=== PATIENT | female | born 1960 | race Caucasian/White ===

== ENCOUNTER 2019-01-28 22:11 | Emergency (ER) | payer BC ==
[~2019-01-28] VITALS: Ht 154.9 cm; Wt 45.4 kg
[~2019-01-28 22:11] MED LIST: CHOL4PAC16 PO; DIAZ5TAB PO; FIDA200T PO; FLUO20CA42 PO; OXYC1TAB16 PO
[2019-01-29 00:13] LABS: ALANINE AMINOTRANSFERASE 11 U/L (0-55); ALBUMIN 4.5 GM/DL (3.2-4.5); ALKALINE PHOSPHATASE 90 U/L (40-136); BILIRUBIN,TOTAL 0.2 MG/DL (0.1-1.0); BUN/CREATININE RATIO 14; CARBON DIOXIDE 27 MMOL/L (21-32); CHLORIDE 103 MMOL/L (98-107); CREATININE SERUM 0.85 MG/DL (0.60-1.30); GFR ESTIMATED > 60; GLUCOSE 93 MG/DL (70-105); LIPASE 61 U/L (8-78); MAGNESIUM 1.8 MG/DL (1.6-2.4); POTASSIUM 3.9 MMOL/L (3.6-5.0); SODIUM 143 MMOL/L (135-145); TOTAL PROTEIN 7.9 GM/DL (6.4-8.2)
[2019-01-29 00:14] LABS: COLOR,URINE YELLOW
[2019-01-29 00:15] LABS: BILIRUBIN,URINE NEGATIVE (NEGATIVE); CLARITY,URINE CLEAR; GLUCOSE, URINE (UA) NEGATIVE (NEGATIVE); KETONES,URINE NEGATIVE (NEGATIVE); LEUKOCYTE ESTERASE ,URINE NEGATIVE (NEGATIVE); NITRITE,URINE NEGATIVE (NEGATIVE); PROTEIN,URINE NEGATIVE (NEGATIVE); UROBILINOGEN,URINE NORMAL (NORMAL)
[2019-01-29 00:16] LABS: AMORPHOUS SEDIMENT,UR FEW AMOR PHOSPHATE /LPF; BACTERIA,URINE FEW /HPF
[2019-01-29 00:19] LABS: BASOPHILS % (AUTO) 0 % (0-10); EOSINOPHILS % (AUTO) 1 % (0-10); HEMATOCRIT 44 % (35-52); HEMOGLOBIN 14.6 G/DL (11.5-16.0); LYMPHOCYTES % (AUTO) 25 % (12-44); MEAN CORPUSCULAR HEMOGLOBIN 33 PG (25-34); MEAN CORPUSCULAR HGB CONC 33 G/DL (32-36); MEAN CORPUSCULAR VOLUME 99 FL (80-99); MEAN PLATELET VOLUME 9.4 FL (7.4-10.4); MONOCYTES % (AUTO) 7 % (0-12); NEUTROPHILS % (AUTO) 67 % (42-75); PLATELET COUNT 343 10^3/uL (130-400); RED CELL DISTRIBUTION WIDTH 13.6 % (10.0-14.5); WHITE BLOOD COUNT 12.8 10^3/uL (4.3-11.0)
[2019-01-29 00:20] LABS: BASOPHILS # (AUTO) 0.1 10^3/uL (0.0-0.1); EOSINOPHILS # (AUTO) 0.1 10^3/uL (0.0-0.3); LYMPHOCYTES # (AUTO) 3.2 X 10^3 (1.0-4.0); MONOCYTES # (AUTO) 0.9 X 10^3 (0.0-1.0); NEUTROPHILS # (AUTO) 8.6 X 10^3 (1.8-7.8)
[2019-01-29] MEDS ORDERED: HYOSCYAMINE 0.125 MG (LEVSIN) TAB SL ONE (01:45)
--- NOTE | 2019-01-29 01:47 | ED Abdominal Pain ---
General Chief Complaint: Abdominal/GI Problems Stated Complaint: SEVERE STOMACH PAIN Nursing Triage Note: ABD PAIN FOR 2 WEEKS HAS BEEN TO DOCTOR MULTIPLE TIMES AND STATES SHE CANT DEAL ANYMORE BECAUSE OF THE PAIN. Sepsis Screen: No Definite Risk Allergies and Home Medications Allergies Coded Allergies: fenoprofen (Verified Allergy, Severe, Anaphylaxis, 01/29/19) Had anaphylaxis to fenoprofen. However, she can take aspirin and ibuprofen. Uncoded Allergies: CHEESE & NUTS (Allergy, Unknown, 11/11/07) Home Medications Cholestyramine (with Sugar) 4 Gm Powd.pack, 4 GM PO DAILY, (Reported) Fidaxomicin 200 Mg Tablet, 200 MG PO BID Prescribed by: ABBY DUMONT on 05/24/152103 Past Qatirvc-Nrqeni-Rgmdeh Hx Patient Social History Alcohol Use: Occasionally Uses Recreational Drug Use: No Smoking Status: Current Everyday Smoker Type Used: Cigarettes 2nd Hand Smoke Exposure: No Recent Foreign Travel: No Contact w/Someone Who Travel: No Recent Infectious Disease Expo: No Recent Hopitalizations: No Physical Abuse: No Sexual Abuse: No Mistreated: No Fear: No Past Medical History Surgeries: Yes (bilat lumpectomy-breast) Adenoidectomy, Hysterectomy, Tonsillectomy Respiratory: No Cardiac: Yes (medication induced [place]) Heart Attack Neurological: Yes Headaches /Migraines : No CAD ENGINEER History: Hysterectomy Genitourinary: No Gastrointestinal: Yes (recent dx w/ c diff) C-Diff Musculoskeletal: Yes Chronic Back Pain Endocrine: No HEENT: No Cancer: No Psychosocial: Yes (panic) Integumentary: No Blood Disorders: No Adverse Reaction/Blood Tranf: No Physical Exam Vital Signs Vital Signs - First Documented 01/28/19 22:15 Temp 99.4 Pulse 101 Resp 18 B/P (MAP) 157/81 (106) Pulse Ox 97 Capillary Refill : Less Than 3 Seconds Height/Weight/BMI Height: 5'1.00" Weight: 100lbs. oz. [id number]; BMI Method:Stated Progress/Results/Core Measures Results/Orders Lab Results Laboratory Tests Test 01/28/19 22:19 01/28/19 22:50 Range/Units White Blood Count 12.8 H 4.3-11.0 10^3/uL Red Blood Count 4.42 4.35-5.85 10^6/uL Hemoglobin 14.6 11.5-16.0 G/DL Hematocrit 44 35-52 % Mean Corpuscular Volume 99 80-99 FL Mean Corpuscular Hemoglobin 33 25-34 PG Mean Corpuscular Hemoglobin Concent 33 32-36 G/DL Red Cell Distribution Width 13.6 10.0-14.5 % Platelet Count 343 130-400 10^3/uL Mean Platelet Volume 9.4 7.4-10.4 FL Neutrophils (%) (Auto) 67 42-75 % Lymphocytes (%) (Auto) 25 12-44 % Monocytes (%) (Auto) 7 0-12 % Eosinophils (%) (Auto) 1 0-10 % Basophils (%) (Auto) 0 0-10 % Neutrophils # (Auto) 8.6 H 1.8-7.8 X 10^3 Lymphocytes # (Auto) 3.2 1.0-4.0 X 10^3 Monocytes # (Auto) 0.9 0.0-1.0 X 10^3 Eosinophils # (Auto) 0.1 0.0-0.3 10^3/uL Basophils # (Auto) 0.1 0.0-0.1 10^3/uL Sodium Level 143 135-145 MMOL/L Potassium Level 3.9 3.6-5.0 MMOL/L Chloride Level 103 98-107 MMOL/L Carbon Dioxide Level 27 21-32 MMOL/L Anion Gap 13 5-14 MMOL/L Blood Urea Nitrogen 12 7-18 MG/DL Creatinine 0.85 0.60-1.30 MG/DL Estimat Glomerular Filtration Rate > 60 BUN/Creatinine Ratio 14 Glucose Level 93 70-105 MG/DL Calcium Level 10.0 8.5-10.1 MG/DL Corrected Calcium 9.6 8.5-10.1 MG/DL Magnesium Level 1.8 1.6-2.4 MG/DL Total Bilirubin 0.2 0.1-1.0 MG/DL Aspartate Amino Transf (AST/SGOT) 19 5-34 U/L Alanine Aminotransferase (ALT/SGPT) 11 0-55 U/L Alkaline Phosphatase 90 40-136 U/L Total Protein 7.9 6.4-8.2 GM/DL Albumin 4.5 3.2-4.5 GM/DL Lipase 61 8-78 U/L Urine Color YELLOW Urine Clarity CLEAR Urine pH 7.0 5-9 Urine Specific [place] 1.005 L 1.016-1.022 Urine Protein NEGATIVE NEGATIVE Urine Glucose (UA) NEGATIVE NEGATIVE Urine Ketones NEGATIVE NEGATIVE Urine Nitrite NEGATIVE NEGATIVE Urine Bilirubin NEGATIVE NEGATIVE Urine Urobilinogen NORMAL NORMAL MG/DL Urine Leukocyte Esterase NEGATIVE NEGATIVE Urine RBC (Auto) NEGATIVE NEGATIVE Urine RBC NONE /HPF Urine WBC NONE /HPF Urine Crystals PRESENT H /LPF Urine Amorphous Sediment FEW PANCHO PHOSPHATE H /LPF Urine Bacteria FEW H /HPF Urine Casts NONE /LPF Urine Mucus NEGATIVE /LPF Urine Culture Indicated CULTURE PENDING My Orders Orders - SULTANA HODGES MD Ct Abdomen/Pelvis W (01/29/19 00:15) Hyoscyamine Sl Tablet (Levsin Sl Tablet) (01/29/19 01:45) Vital Signs/I&O 01/28/19 22:15 Temp 99.4 Pulse 101 Resp 18 B/P (MAP) 157/81 (106) Pulse Ox 97 Blood Pressure Mean: 106 Departure Impression Primary Impression: Nausea and vomiting Qualified Codes: R11.2 - Nausea with vomiting, unspecified Additional Impressions: Migratory abdominal pain Bloating Disposition: HOME, SELF-CARE Condition: Improved Departure-Patient Inst. Decision time for Depature: 01:43 Referrals: NO,LOCAL PHYSICIAN (PCP/Family) Primary Care Physician Patient Instructions: Acute Abdomen (Belly Pain), Adult (DC), Viral Gastroenteritis Add. Discharge Instructions: The exact cause of your abdominal pain is not certain but may be related to viral gastroenteritis. Start with a clear liquid diet. Gradually advance diet with small quantities of bland food as tolerated as symptoms improve. Avoid milk products and fatty/greasy foods until symptoms resolve. Follow-up with your doctor next week. Seek referral to a general surgeon or reconciliation machine operator for further evaluation of your gallbladder polyps and your abdominal pain. You may take ibuprofen up to 400 mg every 6 hours as needed and/or Tylenol (acetaminophen) up to 650 mg every 6 hours as needed. Take Zofran (ondansetron) as prescribed for nausea and vomiting. Take Levsin (hyoscyamine) as prescribed for bowel cramping. Return to the ER if you have worsening symptoms. All discharge instructions reviewed with patient and/or family. Voiced understanding. Scripts Ondansetron (Ondansetron Odt) 4 Mg Tab.rapdis 4 MG SL Q4H PRN for NAUSEA/VOMITING, #10 TAB Prov: SULTANA HODGES MD 01/29/19 Hyoscyamine Sulfate (Levsin-Sl) 0.125 Mg Tab.subl 0.125 MG SL Q4H PRN for CRAMPS, #10 TAB 0 Refills Prov: SULTANA HODGES MD 01/29/19 Work/School Note: Work Release Form Date Seen in the Emergency Department: Jan 29, 2019 Return to Work: Jan 30, 2019 Restrictions: No Restrictions Copy Copies To 1: JAYLEN PAZ MD, JOSHUA T MD Jan 29, 2019 01:47
[2019-01-29] MEDS ORDERED: HYOS0.1283 SL (01:49)
[2019-01-29] MEDS ORDERED: ONDA4TAB11 SL (01:49)
[2019-01-29 01:59] VITALS: BP 114/77
--- NOTE | 2019-01-29 07:38 | Diagnostic Imaging Report ---
PROCEDURE: CT abdomen and pelvis with contrast. TECHNIQUE: Multiple contiguous axial images were obtained through the abdomen and pelvis after administration of intravenous contrast. Auto Exposure Controls were utilized during the CT exam to meet ALARA standards for radiation dose reduction. INDICATION: Pain. Exam compared with study 05/24/2015. FINDINGS: No bowel, biliary or urinary tract obstruction. No focal inflammatory process. No ascites, abscess, hematoma or other fluid collection is found. No pneumatosis or free gas. No aneurysm, adenopathy or mass. Gallbladder and bile ducts unremarkable. Liver densities consistent with mild degree of fatty infiltration. No acute liver pathology. The urinary tracts are unobstructed. Aorta is nonaneurysmal. There is no diverticulitis or appendicitis. Uterus absent or atrophic. There is no adnexal lesion. Urinary bladder unremarkable. IMPRESSION: No obstructive features, inflammatory process or acute appearing abdominopelvic abnormalities. Dictated by: Dictated on workstation # [id number]
== END 2019-01-29 01:59 | disposition home or self-care (01) ==
LOC: EDUNIT# 22:11 → ER 22:12
DX: R11.2 Nausea with vomiting, unspecified (principal); R10.9 Unspecified abdominal pain; R14.0 Abdominal distension (gaseous); I25.2 Old myocardial infarction; G43.909 Migraine, unspecified, not intractable, without status migrainosus; F17.210 Nicotine dependence, cigarettes, uncomplicated; Z88.6 Allergy status to analgesic agent; Z90.710 Acquired absence of both cervix and uterus; Z90.89 Acquired absence of other organs
CPT/HCPCS: 36415; 74177; 80053; 81000; 83690; 83735; 85025; 87088

== ENCOUNTER 2019-03-20 12:11 | Outpatient (CLI) | payer BC ==
[~2019-03-20] VITALS: Ht 154.9 cm; Wt 44.1 kg
[~2019-03-20 12:11] MED LIST changes: +HYOS0.1283 SL; +ONDA4TAB11 SL
[2019-03-20] MEDS ORDERED: CHOL20002 PO (12:17)
[2019-03-20] MEDS ORDERED: DIAZ10TA3 PO (12:17)
== END 2019-03-20 12:24 | disposition home or self-care (01) ==
LOC: PREOP 12:11
PROVIDERS: ATTEND Surgery
DX: Z01.818 Encounter for other preprocedural examination (principal)

== ENCOUNTER 2019-04-08 06:59 | Day surgery (SDC) | payer BC ==
[~2019-04-08] VITALS: Ht 154.9 cm; Wt 44.1 kg
[~2019-04-08 06:59] MED LIST changes: +CHOL20002 PO; +DIAZ10TA3 PO
[2019-04-08 07:03] VITALS: BP 139/87
[2019-04-08] MEDS ORDERED: SEVOFLURANE (ULTANE) 15 ML INHAL SOLN ONE (07:10)
[2019-04-08] MEDS ORDERED: MIDAZOLAM 2 MG/2 ML (VERSED) VIAL ONE (07:10)
[2019-04-08] MEDS ORDERED: ONDANSETRON 4 MG/2 ML (SDV) Z0FRAN ONE (07:10)
[2019-04-08] MEDS ORDERED: ROCURONIUM 10 MG/ML 5 ML SYRINGE IV ONE (07:10)
[2019-04-08] MEDS ORDERED: DEXAMETHASONE 10 MG/ML (DECADRON) 1 ML VIAL ONE (07:10)
[2019-04-08] MEDS ORDERED: proPOfol 200 MG/20 ML (DIPRIVAN) VIAL IV ONE (07:10)
[2019-04-08] MEDS ORDERED: LIDOCAINE PF 2% 5 ML (XYLOCAINE) VIAL ONE (07:10)
[2019-04-08] MEDS ORDERED: fentaNYL INJECTION 100 MCG/2 ML AMP ONE (07:10)
[2019-04-08] MEDS ORDERED: LACTATED RINGERS 1,000 ML IV PRN (07:13)
[2019-04-08] MEDS ORDERED: ceFAZolin 2 GM IV Premixed 50 ML IV ONE (07:15)
[2019-04-08] MEDS ORDERED: BUP/EPI 0.5% 1:200,000 (SENSORCAINE) 30 ML VIAL ONE (07:16)
[2019-04-08] MEDS ORDERED: IOPAMIDOL 61% 30 ML (ISOVUE 300) VIAL IV ONE (07:16)
--- NOTE | 2019-04-08 07:55 | NUR ---
SEE OUTPATIENT ADMISSION RECORD
--- NOTE | 2019-04-08 07:55 | NUR ---
SURGERY CANCELLED DUE TO CURRENT UPPER RESPIRATORY INFECTION. PT INSTRUCTED TO SEE PRIMARY CARE PHYSICIAN AND TO CALL DR OROZCO'S OFFICE TO RESCHEDULE SURGERY WHEN SHE IS RECOVERED. VERBALIZED UNDERSTANDING.
== END 2019-04-08 07:55 | disposition home or self-care (01) ==
LOC: SDC 06:59
PROVIDERS: ATTEND Surgery
DX: K82.4 Cholesterolosis of gallbladder (principal); Z80.0 Family history of malignant neoplasm of digestive organs; J06.9 Acute upper respiratory infection, unspecified; Z53.09 Procedure and treatment not carried out because of other contraindication